=== PATIENT | male | born 1985 | race Caucasian/White ===

== ENCOUNTER 2016-10-05 20:30 | Emergency (ER) | payer BC, MEDICAID ==
[2016-10-05 20:57] LABS: BASOPHIL % 0.5 % (0-2); PLATELET COUNT 281 x10^3mcL (130-400); RED CELL DISTRIBUTION WIDTH 12.4 % (11.5-14.5)
[2016-10-05 21:13] LABS: CALCIUM 8.5 mg/dL (8.5-10.1); CARBON DIOXIDE 30.3 mmol/L (21-32); CHLORIDE SERUM 103 mmol/L (98-107); CREATININE SERUM 1.2 mg/dL (0.7-1.3); GFR1 > 60 mL/min; GLUCOSE SERUM 98 mg/dL (74-106); POTASSIUM SERUM 3.9 mmol/L (3.5-5.1); SODIUM SERUM 140 mmol/L (136-145)
[2016-10-05 21:17] LABS: ALBUMIN 4.1 g/dL (3.4-5.0); ALKALINE PHOSPHATASE 95 U/L (46-116); ALT/SGPT 21 U/L (16-63); AST/SGOT 17 U/L (15-37); BILIRUBIN TOTAL 0.6 mg/dL (0.20-1.00)
[2016-10-05 22:32] LABS: microscopic required? YES; urine erythrocyte 3+ (NEGATIVE)
[2016-10-06 02:08] LABS: AMPHETAMINE QUAL UR NONE DETECTED (NEG <=1000)
[2016-10-06 02:45] VITALS: BP 131/77
== END 2016-10-06 02:45 | disposition home or self-care (01) ==
LOC: ED 20:30
PROVIDERS: Emergency Medicine
DX: T48.3X2A Poisoning by antitussives, intentional self-harm, initial encounter (principal); T40.7X2A Poisoning by cannabis (derivatives), intentional self-harm, initial encounter; F17.210 Nicotine dependence, cigarettes, uncomplicated; E27.1 Primary adrenocortical insufficiency; Y92.89 Other specified places as the place of occurrence of the external cause
CPT/HCPCS: 80307; G0480